=== PATIENT | male | born 1960 | race Caucasian/White ===

== ENCOUNTER 2017-04-16 10:11 | Emergency (ER) | END 2017-04-16 11:02 | disposition left against medical advice (07) ==

== ENCOUNTER 2018-09-28 22:20 | Emergency (ER) | payer SELFPAY ==
[~2018-09-28] VITALS: Ht 185.4 cm; Wt 106.1 kg
[~2018-09-28 22:20] MED LIST: NO CURRENT MEDS
[2018-09-28 22:21] VITALS: BP 134/88; PULSE 82; RESP 28; Ht 185.4 cm; Wt 106.1 kg
[2018-09-28] MEDS ORDERED: ALBUTEROL 0.5% (NEB) 2.5 MG/0.5 ML AMP INH STA (23:28)
[2018-09-28] MEDS ORDERED: IPRATROPIUM (NEB) 0.5 MG/2.5 ML AMP INH STA (23:28)
[2018-09-28] MEDS ORDERED: SOD CHLORIDE 0.9% 1,000 ML IV STA (23:28)
[2018-09-28] MEDS ORDERED: METHYLPREDNISOLONE 125 MG INJ IV STA (23:28)
[2018-09-29] MEDS ORDERED: ALBU18HF INHALATION (01:07)
[2018-09-29] MEDS ORDERED: PRED20TA PO (01:07)
[2018-09-29] MEDS ORDERED: BENZ200C68 PO (01:07)
--- NOTE | 2018-09-29 01:23 | ERD ---
ER Documentation Chief Complaint Chief Complaint SOB WITH COUGH AND WHEEZING X1DAY; DENIES HEART PROBLEMS/ISSUES HPI 58-year-old male with no significant past medical history presents to the emergency department complaining of intermittent cough, shortness of breath and wheezing for the past 1 day. Symptoms are moderate in severity. Patient tried no medication for relief of symptoms. He denies any fevers, chills, or other symptoms at this time. ROS All systems reviewed and are negative except as per history of present illness. Medications Home Meds Active Scripts Benzonatate* (Benzonatate*) 200 Mg Capsule, 200 MG PO TID PRN for COUGH, #15 CAP Prov:JEANETTE ROQUE PA-C 09/29/18 Albuterol Sulfate* (Ventolin HFA*) 18 Gm Hfa.aer.ad, 2 PUFF INHALATION Q4H, #1 INHALER Prov:JEANETTE ROQUE PA-C 09/29/18 Prednisone* (Prednisone*) 20 Mg Tab, 40 MG PO DAILY for 4 Days, TAB Prov:JEANETTE ROQUE PA-C 09/29/18 Reported Medications [No Current Meds] No Conflict Check 06/19/09 Allergies Allergies: Coded Allergies: Codeine (Verified Adverse Reaction, Intermediate, URINARY RETENTION, 01/26/11) PMhx/Soc Medical and Surgical Hx: pt denies Medical Hx History of Surgery: Yes (APPENDECTOMY 4YRS, HERNIA) Anesthesia Reaction: No Hx Neurological Disorder: No Hx Respiratory Disorders: No Hx Cardiac Disorders: No Hx Psychiatric Problems: No Hx Miscellaneous Medical Probl: No (NO MEDICAL PROBLEMS ) Hx Alcohol Use: No Hx Substance Use: No Hx Tobacco Use: Yes (10CIG/WK ) Smoking Status: Current every day smoker FmHx Family History: No diabetes Physical Exam Vitals Vital Signs Date Temp Pulse Resp B/P (MAP) Pulse Ox O2 O2 Flow FiO2 Time Delivery Rate 09/28/18 82 20 92 21 23:46 09/28/18 99.4 82 28 134/88 94 22:21 (103) Physical Exam Const: No acute distress Head: Atraumatic Eyes: Normal Conjunctiva ENT: Normal External Ears, Nose and Mouth. Neck: Full range of motion. No meningismus. Resp: Scattered wheezing. No respiratory distress. No crackles. Cardio: Regular rate and rhythm, no murmurs Skin: No petechiae or rashes Back: No midline or flank tenderness Ext: No cyanosis, or edema Neur: Awake and alert Psych: Normal Mood and Affect Result Diagram: 09/28/182 09/28/182 Results 24 hrs Laboratory Tests Test 09/28/18 23:52 White Blood Count 9.0 10^3/ul Red Blood Count 4.61 10^6/ul Hemoglobin 14.0 g/dl Hematocrit 41.7 % Mean Corpuscular Volume 90.5 fl Mean Corpuscular Hemoglobin 30.4 pg Mean Corpuscular Hemoglobin Concent 33.6 g/dl Red Cell Distribution Width 13.2 % Platelet Count 199 10^3/UL Mean Platelet Volume 11.4 fl Immature Granulocytes % 0.200 % Neutrophils % 62.1 % Lymphocytes % 25.7 % Monocytes % 7.7 % Eosinophils % 3.7 % Basophils % 0.6 % Nucleated Red Blood Cells % 0.0 /100WBC Immature Granulocytes # 0.020 10^3/ul Neutrophils # 5.6 10^3/ul Lymphocytes # 2.3 10^3/ul Monocytes # 0.7 10^3/ul Eosinophils # 0.3 10^3/ul Basophils # 0.1 10^3/ul Nucleated Red Blood Cells # 0.0 10^3/ul Sodium Level 142 mmol/L Potassium Level 4.2 mmol/L Chloride Level 103 mmol/L Carbon Dioxide Level 29 mmol/L Anion Gap 10 Blood Urea Nitrogen 21 mg/dl Creatinine 1.07 mg/dl Est Glomerular Filtrat Rate mL/min > 60 mL/min Glucose Level 99 mg/dl Calcium Level 8.9 mg/dl Current Medications Medications Dose Sig/[place]urel Start Time Status Last (Trade) Ordered Route PRN Stop Time Admin Dose Reason Admin Sodium 1,000 ml @ Q1H STAT 09/28/18 DC 09/28/18 Chloride 1,000 mls/hr IV 23:28 23:55 09/29/18 00:27 Albuterol 10 mg ONCE STAT 09/28/18 DC 09/28/18 (Proventil INH 23:28 23:46 0.5% (Neb)) 09/28/18 23:30 Ipratropium 1 mg ONCE STAT 09/28/18 DC 09/28/18 Ryde INH 23:28 23:46 (Atrovent 09/28/18 23:30 0.02% (Neb)) 125 mg ONCE STAT 09/28/18 DC 09/28/18 Methylprednis IV 23:28 23:55 olone Sodium 09/28/18 23:30 Succinate (Solu-Medrol) [place] [id number] Radiology Main Line: [phone] DIAGNOSTIC IMAGING REPORT Patient: KEKE CHILDS : 1960 Age: 58 Sex: M MR #: [id number] DOS: 09/28/18 2328 Ordering MD: JEANETTE ROQUE PA-C Location: [facility] Room/Bed: PROCEDURE: XR Chest. CLINICAL INDICATION: Shortness of breath. Asthma exacerbation. TECHNIQUE: Single frontal view. COMPARISON: None. FINDINGS: The lungs are clear. The heart size is normal. There is no pleural effusion. There is no pneumothorax. IMPRESSION: 1. Normal chest radiograph. RPTAT: QQ .Ruperto Sloan MD, MD Date Time Electronically viewed and signed by .Ruperto Sloan MD, MD on 09/29/2018 00:56 .R/ CC: JEANETTE ROQUE PA-C [phone] Procedures/MDM 58-year-old male presents with signs and symptoms most consistent with acute wheezy bronchitis. Patient did have wheezing on examination and ipratropium/albuterol breathing treatment as well as IV Solu-Medrol was administ ered with significant improvement of his symptoms. Patient's respiratory status has stabilized while in the department and is appropriate for outpatient work up. Exam and work up not consistent w/ impending respiratory failure or cardiovascular collapse. Departure Diagnosis: Primary Impression: Wheezy bronchitis Condition: Fair Patient Instructions: Bronchitis With Wheezing (Adult) Referrals: [facility] YOU HAVE RECEIVED A MEDICAL SCREENING EXAM AND THE RESULTS INDICATE THAT YOU DO NOT HAVE A CONDITION THAT REQUIRES URGENT TREATMENT IN THE EMERGENCY DEPARTMENT. FURTHER EVALUATION AND TREATMENT OF YOUR CONDITION CAN WAIT UNTIL YOU ARE SEEN IN YOUR DOCTORS OFFICE WITHIN THE NEXT 1-2 DAYS. IT IS YOUR RESPONSIBILITY TO MAKE AN APPOINTMENT FOR FOLOW-UP CARE. IF YOU HAVE A PRIMARY DOCTOR --you should call your primary doctor and schedule an appointment IF YOU DO NOT HAVE A PRIMARY DOCTOR YOU CAN CALL OUR PHYSICIAN REFERRAL HOTLINE AT IF YOU CAN NOT AFFORD TO SEE A PHYSICIAN YOU CAN CHOSE FROM THE FOLLOWING [facility] [address] [facility] [place] [address] [facility] [facility] [address] [facility] [address] [facility] [address] [facility]. [facility]. [address] Additional Instructions: Call your primary care doctor TOMORROW for an appointment during the next 1-2 days.See the doctor sooner or return here if your condition worsens before your appointment time. JEANETTE ROQUE PA-C Sep 29, 2018 01:23
== END 2018-09-29 01:34 | disposition home or self-care (01) ==
LOC: FTE 22:20
DX: J40 Bronchitis, not specified as acute or chronic (principal); F17.210 Nicotine dependence, cigarettes, uncomplicated
CPT/HCPCS: 36415; 71045; 80048; 85025; 94644; 96374; 99284; J2930; J7030